=== PATIENT | male | born 1995 | race Caucasian/White ===

== ENCOUNTER 2017-05-27 16:00 | Inpatient (IN) | payer BC, OTHER ==
[~2017-05-27] VITALS: Ht 182.9 cm; Wt 64.4 kg
[2017-05-27] MEDS ORDERED: LOPERAMIDE HCL 2 MG CAPSULE PO PRN ×2 (21:00)
[2017-05-27] MEDS ORDERED: BUPRENORPHINE HCL 2 MG TAB.SUBL SL PRN (21:00)
[2017-05-27] MEDS ORDERED: ACETAMINOPHEN 325 MG TABLET PO PRN (21:00)
[2017-05-27] MEDS ORDERED: IBUPROFEN 600 MG TABLET PO PRN (21:00)
[2017-05-27] MEDS ORDERED: MAG HYDROX/AL HYDROX/SIMETH 30 ML LIQUID UDC PO PRN (21:00)
[2017-05-27] MEDS ORDERED: METHOCARBAMOL 750 MG TABLET PO PRN (21:00)
[2017-05-27] MEDS ORDERED: MIRALAX 17 GM POWD.PACK PO PRN (21:00)
[2017-05-27] MEDS ORDERED: HYDROXYZINE PAMOATE 25 MG CAPSULE PO PRN (21:00)
[2017-05-27] MEDS ORDERED: ONDANSETRON 4 MG/2 ML VIAL IM PRN (21:00)
[2017-05-27] MEDS ORDERED: LORAZEPAM 1 MG TABLET PO PRN (21:00)
[2017-05-27] MEDS ORDERED: DICYCLOMINE HCL 20 MG TABLET PO PRN (21:00)
[2017-05-27] MEDS ORDERED: ONDANSETRON ODT 4 MG TAB.RAPDIS SL PRN (21:00)
[2017-05-27] MEDS ORDERED: diphenhydrAMINE 50 MG CAPSULE PO PRN (21:00)
[2017-05-27] MEDS ORDERED: CLONIDINE HCL 0.1 MG TABLET PO PRN (21:00)
[2017-05-27 21:41] LABS: BASOPHILS # (AUTO) 0.1 K/uL (0.0-8.0); BASOPHILS % (AUTO) 0.5 % (0.0-2.0); EOSINOPHILS # (AUTO) 0.1 K/uL (0.0-0.7); EOSINOPHILS % (AUTO) 0.8 % (0.0-7.0); HEMATOCRIT 50.2 % (40-50); HEMOGLOBIN 16.4 G/DL (14.0-18.0); LYMPHOCYTES # (AUTO) 2.1 K/UL (0.8-4.8); LYMPHOCYTES % (AUTO) 19.6 % (20.5-74.5); MEAN CORPUSCULAR HEMOGLOBIN 29.4 UUG (27.0-31.0); MEAN CORPUSCULAR HGB CONC 33 g/dL (32.0-37.0); MONOCYTES # (AUTO) 0.6 K/UL (0.1-1.30); MONOCYTES % (AUTO) 5.9 % (0-11); NEUTROPHILS # (AUTO) 7.9 K/UL (1.8-8.9); NEUTROPHILS % (AUTO) 73.2 % (31.5-64.5); PLATELET COUNT (AUTO) 237 K/UL (150-450); RED BLOOD CELL COUNT(AUTO) 5.57 MIL/UL (4.7-6.1); WHITE BLOOD COUNT (AUTO) 10.8 K/UL (4.0-11.2)
--- NOTE | 2017-05-27 21:45 | NUR ---
INTAKE ASSESSMENT Pt. is alert, oriented x4 ; IQ=270/85, IX=239, RR=16, Temp=98.2, Ynl6=935% , COWS=4 . Pt. complains of the mild back pain 2/10. Pt is in stable condition and able to be admitted on the unit. Unit protocols regarding medications and vitals signs Q4H were explained. Pt verbalized understanding. Will continue admission upon arrival on the unit.
[2017-05-27 21:49] LABS: ALANINE AMINOTRANSFERASE 27 U/L (16-63); ALKALINE PHOSPHATASE 77 U/L (50-136); ASPARTATE AMINOTRANSFERASE 13 U/L (15-37); BILIRUBIN,TOTAL 0.5 mg/dL (0.2-1.0); CARBON DIOXIDE 30 mmol/L (21-32); CHLORIDE 104 mmol/L (98-107); GLUCOSE 115 mg/dL (74-106); MAGNESIUM 2.1 mg/dL (1.8-2.4); POTASSIUM 3.3 mmol/L (3.5-5.1); TOTAL PROTEIN, SERUM 8.5 g/dL (6.4-8.2); UREA NITROGEN, BLOOD 9 mg/dL (7-18)
[2017-05-27 21:51] LABS: ETHANOL < 3 MG/DL (0-0)
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
--- NOTE | 2017-05-27 23:30 | NUR ---
UDS sample provided, is sent to the lab.
[2017-05-27 23:38] LABS: *AMPHETAMINE, URINE POSITIVE (NEGATIVE); *BARBITURATE, URINE NEGATIVE (NEGATIVE); *CANNABINOID, URINE POSITIVE (NEGATIVE); *COCCAINE, URINE NEGATIVE (NEGATIVE); *OPIATE, URINE POSITIVE (NEGATIVE); *PHENCYCLIDINE SCREEN,URINE NEGATIVE (NEGATIVE)
[2017-05-28] VITALS: BP 112/66
[2017-05-28 04:00] VITALS: BP 119/82
[2017-05-28] MEDS ORDERED: POTASSIUM CHLORIDE 20 MEQ TAB.PRT.SR PO ONE (06:00)
[2017-05-28] MEDS ORDERED: POTASSIUM CHLORIDE 20 MEQ TAB.PRT.SR ONE (06:21)
--- NOTE | 2017-05-28 06:46 | NUR ---
END OF SHIFT NOTE : Pt [facility] to [facility] floor accompanied by a EMS EDUCATOR at 21:52. Pt is a 21 year old male admitted on 05/27/17 for Heroin and Methamphetamine dependency. Pt is full code with allergy to Ibuprofen, Excedrin, Aspirin, Caffeine. Pt. is on Regular Diet. He denies history of seizures. Pt. denies history of SI/HI, hallucinations. Pt remains compliant with the treatment plan. No PRNs were given during my shift. V/S remain WNL. RR=16, even and unlabored, lungs clear upon auscultation, abdomen soft and non- distended. Pt denies nausea, vomiting and diarrhea. LAST COWS=4 at 0400 , INTAKE= 710 ml, voided x2 , slept 7 [address] Safety measures in place : bed on lowest position with side rails x2 up for safety, call light within reach. Will continue to monitor closely and offer help.
--- NOTE | 2017-05-28 07:31 | NUR ---
START OF SHIFT NOTE: Received report from assistant shift supervisor nurse. Pt is a 21 year old male admitted on 05/27/17 for Heroin and Methamphetamine dependency. Pt on prn medication only at this time. Pt is alert and oriented X4. Color good, skin warm and dry. Respirations even and unlabored. Resting in bed. Safety precautions observed. Calll light within reach. Will continue to monitor.
[2017-05-28] MEDS: MULTIVITAMINS,THERAPEUTIC TABLET PO SCH (08:23)
[2017-05-28 08:32] VITALS: BP 136/79
--- NOTE | 2017-05-28 08:43 | NUR ---
VSS COWS 4 Pt refused TB test
[2017-05-28] MEDS ORDERED: TUBERCULIN,PURIF.PROT.DERIV. 5 TU/0.1 ML TEST ID ONE (09:00)
[2017-05-28 12:20] VITALS: BP 119/73
[2017-05-28] MEDS ORDERED: ALBU8.5H8 INH (12:27)
--- NOTE | 2017-05-28 14:30 | NUR ---
Tylenol 650mg po prn given for headache and Robaxin 750mg po prn for muscle aches.
[2017-05-28] MEDS ORDERED: CLON0.1T14 PO (14:45)
[2017-05-28] MEDS ORDERED: DICY20TA28 PO (14:45)
[2017-05-28] MEDS ORDERED: METH-406 PO (14:45)
[2017-05-28] MEDS ORDERED: HYDR-3895 PO (14:45)
[2017-05-28] MEDS ORDERED: DIPH50CA37 PO (14:45)
[2017-05-28] MEDS ORDERED: ACET325T53 PO (14:45)
--- NOTE | 2017-05-28 15:36 | NUR ---
Pt states feels improved after Robaxin and Tylenol prn.
[2017-05-28 17:27] VITALS: BP 119/73
--- NOTE | 2017-05-28 18:40 | NUR ---
END OF SHIFT NOTE: Report given to night clerk auditor nurse . Pt is a 21 year old male admitted on 05/27/17 for Heroin and Methamphetamine dependency. Pt on prn medication only at this time. Pt received Tylenol 650mg po prn and Robaxin 750mg po prn @ 1430. Pt is alert and oriented X4. Color good, skin warm and dry. Respirations even and unlabored. Vital signs have remained stable throughout shift . Resting in bed. Safety precautions observed. Call light within reach.
--- NOTE | 2017-05-28 19:15 | NUR ---
START OF SHIFT NOTE : Pt is a 21 year old male admitted on 05/27/17 for Heroin and Methamphetamine dependency. Pt is full code with allergy to Ibuprofen, Excedrin, Aspirin, Caffeine. Pt. is on Regular Diet. He denies history of seizures. Pt. denies history of SI/HI, hallucinations. Pt remains compliant with the treatment plan. V/S remain WNL. RR=16, even and unlabored, lungs clear upon auscultation, abdomen soft and non- distended. Pt denies nausea, vomiting and diarrhea. Pt. will be D/C tomorrow.Safety measures in place : bed on lowest position with side rails x2 up for safety, call light within reach. Will continue to monitor closely and offer help.
[2017-05-28 20:00] VITALS: BP 122/80
--- NOTE | 2017-05-29 06:48 | NUR ---
END OF SHIFT NOTE : Pt is a 21 year old male admitted on 05/27/17 for Heroin and Methamphetamine dependency. Pt is full code with allergy to Ibuprofen, Excedrin, Aspirin, Caffeine. Pt. is on Regular Diet. He denies history of seizures. Pt. denies history of SI/HI, hallucinations. Pt. will be D/C today. Pt remains compliant with the treatment plan. No PRNs were given during my shift. V/S remain WNL. RR=16, even and unlabored, lungs clear upon auscultation, abdomen soft and non- distended. Pt denies nausea, vomiting and diarrhea. LAST COWS=1 at 0400 , INTAKE= 860 ml, voided x2 , slept 7 hours. Safety measures in place : bed on lowest position with side rails x2 up for safety, call light within reach. Will continue to monitor closely and offer help.
[2017-05-29] MEDS: MULTIVITAMINS,THERAPEUTIC TABLET PO SCH (09:03)
--- NOTE | 2017-05-29 09:30 | NUR ---
discharge note: pt left the unit in stable condition no s/s of pain or discomfort. pt teaching was administered and pt verbalized understanding. all personal belongings were returned. pt will be transferred to [facility] to change via private car
--- NOTE | 2017-05-29 09:30 | NUR ---
start of shift note: received pt from shift mgr nurse, pt is in stable condition no s/s of pain or discomfort, pt is admitted to [facility] for opiate/meth withdrawal/dependence. pts last cows 1 and pt slept for 7 hrs. pt is set to discharge today will assist pt in discharging and will continue to monitor pt for any changes Addendum: 05/29/17 at 1102 by HORACE JEREZ RN start of shift note with wrong time, correct time is 0710 am
[2017-05-29 12:09] LABS: HEPATITIS B SURFACE AG Negative (Negative)
== END 2017-05-29 09:30 | disposition other institution (70) | DRG 897 ==
LOC: SRC 20:31
PROVIDERS: ADMIT Internal Medicine; ATTEND Internal Medicine
PROC: HZ2ZZZZ Detoxification Services for Substance Abuse Treatment (ICD-10-PCS; principal; 2017-05-27)
DX: F11.23 Opioid dependence with withdrawal (principal); E87.6 Hypokalemia; F12.90 Cannabis use, unspecified, uncomplicated; Z83.49 Family history of other endocrine, nutritional and metabolic diseases; Z81.3 Family history of other psychoactive substance abuse and dependence; Z88.6 Allergy status to analgesic agent; F15.23 Other stimulant dependence with withdrawal
CPT/HCPCS: 36415; 70030-TC; 80307; 83735; 85025; 86592; 86705; 86803; 87340; 87806; G0480